=== PATIENT | female | born 1970 | race African-American/Black ===

== ENCOUNTER 2018-07-11 02:58 | Emergency (ER) | payer OTHER ==
--- NOTE | 2018-07-11 03:57 | PDOC ---
History of Present Illness - General Stated Complaint: NAUSEOUS Time Seen by Provider: 07/11/18 03:56 History Source: Patient Exam Limitations: No Limitations Past History - Past Medical History Allergies/Adverse Reactions: Allergies Allergy/AdvReac Type Severity Reaction Status Date / Time acetaminophen [From Percocet] AdvReac Mild Vomiting Verified 08/11/17 01:49 oxycodone HCl [From Percocet] AdvReac Mild Vomiting Verified 08/11/17 01:49 Home Medications: Ambulatory Orders Lisinopril [Prinivil] 20 mg PO DAILY 06/07/16 Venlafaxine HCl [Effexor -] 50 mg PO DAILY 06/07/16 Albuterol Sulfate Inhaler - [Ventolin HFA Inhaler -] 2 inh IH Q6H #1 inh Ibuprofen 800 mg PO TID #30 tablet 06/08/16 Sulfamethoxazole/Trimethoprim [Bactrim *Ds*] 1 tab PO BID #20 tablet 06/08/16 Albuterol Sulfate Inhaler - [Ventolin HFA Inhaler -] 1 - 2 inh PO Q4H PRN #1 inhaler 08/11/17 Anemia: No Asthma: No Cancer: No Cardiac Disorders: No CVA: No COPD: No HTN: Yes Psychiatric Problems: Yes (depression/anxiety) - Surgical History Abdominal Surgery: No Appendectomy: No Cardiac Surgery: No Cholecystectomy: Yes Gastric Stapling: No GI Surgery: No Lung Surgery: No Neurologic Surgery: No - Immunization History Immunization Up to Date: No - Suicide/Smoking/Psychosocial Hx Smoking History: Current every day smoker Have you smoked in the past 12 months: Yes Number of Cigarettes Smoked Daily: 7 'Breaking Loose' booklet given: 06/07/16 Hx Alcohol Use: No Drug/Substance Use Hx: No Substance Use Type: Alcohol
--- NOTE | 2018-07-11 04:09 | PDOC ---
Medical Decision Making - Medical Decision Making 07/11/18 04:09 Pt seen by Midlevel Provider under my direct supervision Pt interviewed and examined Ancillary studies reviewed I agree with plan as outlined by Midlevel Provider *DC/Admit/Observation/Transfer Diagnosis at time of Disposition: Cough, Nausea alone, Abdominal gas pain - Discharge Dispostion Condition at time of disposition: Fair - Prescriptions Prescriptions: Mag Hydrox/Al Hydrox/Simeth [Mylanta Suspension -] 30 ml PO Q6H PRN #1 bottle PRN Reason: Gas - Referrals - Patient Instructions Printed Discharge Instructions: DI for Nausea -- Adult Additional Instructions: drinking plenty of fluids follow up with your doctor as soon as possible. - Post Discharge Activity Forms/Work/School Notes: Back to Work
[2018-07-11] MEDS ORDERED: MAG HYDROX/AL HYDROX/SIMETH 30 ML UNIT-DOSE CUP PO ONE (04:13)
[2018-07-11] MEDS ORDERED: ONDANSETRON 4 MG TABLET PO ONE (04:13)
[2018-07-11 04:20] VITALS: BP 152/76; PULSE 90; TEMP 98.7; BMI 35.6
--- NOTE | 2018-07-11 04:31 | PDOC ---
History of Present Illness - General Chief Complaint: Nausea Stated Complaint: NAUSEOUS Time Seen by Provider: 07/11/18 03:56 History Source: Patient - History of Present Illness Initial Comments: 07/11/18 05:29 48 year old female c/o passing gas frequently not stopped passing gas today. reports feeling that pass in going up not down. + nausea, denies vomiting had normal BM yesterday. denies fever/ chills. patient also reports that she has been coughing and was diagnosed with a URI by . cough has not improved. current smoker. PMHX: htn, hypercholesteremia, depression PSHX: Cholecystectomy 07/11/18 06:14 Past History - Past Medical History Allergies/Adverse Reactions: Allergies Allergy/AdvReac Type Severity Reaction Status Date / Time acetaminophen [From Percocet] AdvReac Mild Vomiting Verified 07/11/18 04:21 oxycodone HCl [From Percocet] AdvReac Mild Vomiting Verified 07/11/18 04:21 Home Medications: Ambulatory Orders Lisinopril [Prinivil] 20 mg PO DAILY 06/07/16 Venlafaxine HCl [Effexor -] 50 mg PO DAILY 06/07/16 Albuterol Sulfate Inhaler - [Ventolin HFA Inhaler -] 1 - 2 inh PO Q4H PRN #1 inhaler 08/11/17 Atorvastatin Ca [Lipitor] 40 mg PO DAILY 07/11/18 Mag Hydrox/Al Hydrox/Simeth [Mylanta Suspension -] 30 ml PO Q6H PRN #1 bottle Anemia: No Asthma: No Cancer: No Cardiac Disorders: No CVA: No COPD: No HTN: Yes Psychiatric Problems: Yes (depression/anxiety) - Surgical History Abdominal Surgery: No Appendectomy: No Cardiac Surgery: No Cholecystectomy: Yes Gastric Stapling: No GI Surgery: No Lung Surgery: No Neurologic Surgery: No - Immunization History Immunization Up to Date: No - Suicide/Smoking/Psychosocial Hx Smoking History: Current every day smoker Have you smoked in the past 12 months: Yes Number of Cigarettes Smoked Daily: 7 'Breaking Loose' booklet given: 06/07/16 Hx Alcohol Use: No Drug/Substance Use Hx: No Substance Use Type: Alcohol *Physical Exam - Vital Signs 07/11/18 05:42 Last Vital Signs Temp Pulse Resp BP Pulse Ox 98.7 F 90 18 152/76 97 07/11/18 04:06 07/11/18 04:06 07/11/18 04:06 07/11/18 04:06 07/11/18 04:06 - Physical Exam General Appearance: Yes: Appropriately Dressed Respiratory/Chest: positive: Lungs Clear, Normal Breath Sounds Gastrointestinal/Abdominal: positive: Normal Bowel Sounds, Soft. negative: Tender, Flat, Organomegaly, Pulsatile Mass, Increased Bowel Sounds, Decreased BS , Protuberent, Distended, Guarding, Rebound, Tenderness, Hernia, Mass, Hepatomegaly, Spleenomegaly, Other Musculoskeletal: positive: Normal Inspection Extremity: positive: Normal Capillary Refill, Normal Inspection, Normal Range of Motion Integumentary: positive: Normal Color, Dry, Warm Neurologic: positive: Fully Oriented, Alert Progress Note - Progress Note Progress Note: A: Gas/ nausea; cough P: chest xray: negative UA abd xray Medical Decision Making - Medical Decision Making 07/11/18 06:36 patient reports feeling better. 07/11/18 06:48 Abdxray: Minimal air and feces in nondilated colon. Minimal air in nondilated small bowel. No bowel obstruction. Cholecystectomy clips. patient is feeling better will dc/ home *DC/Admit/Observation/Transfer Diagnosis at time of Disposition: Cough, Nausea alone, Abdominal gas pain - Discharge Dispostion Condition at time of disposition: Fair - Prescriptions Prescriptions: Mag Hydrox/Al Hydrox/Simeth [Mylanta Suspension -] 30 ml PO Q6H PRN #1 bottle PRN Reason: Gas - Referrals - Patient Instructions Printed Discharge Instructions: DI for Nausea -- Adult Additional Instructions: drinking plenty of fluids follow up with your doctor as soon as possible. - Post Discharge Activity Forms/Work/School Notes: Back to Work
[2018-07-11] MEDS ORDERED: MAG HYDROX/AL HYDROX/SIMETH 30 ML UNIT-DOSE CUP ONE (04:32)
[2018-07-11] MEDS ORDERED: ONDANSETRON 8 MG TABLET (FP) PO ONE (04:32)
[2018-07-11 06:02] LABS: URINE APPEARANCE CLEAR; URINE BILIRUBIN NEGATIVE (<2.0 mg/dL); URINE COLOR LTYELLOW; URINE GLUCOSE (UA) NEGATIVE (NEGATIVE); URINE KETONE NEGATIVE (NEGATIVE); URINE LEUK ESTERASE NEGATIVE (NEGATIVE); URINE NITRITE NEGATIVE (NEGATIVE); URINE PROTEIN NEGATIVE (NEGATIVE); URINE UROBILINOGEN NEGATIVE mg/dL (0.2-1.0)
[2018-07-11 06:31] LABS: EPI CELLS RARE /HPF (FEW); URINE MUCUS RARE
== END 2018-07-11 07:03 | disposition home or self-care (01) ==
LOC: JER 02:58
DX: R05 Cough (principal); R11.0 Nausea; R14.1 Gas pain; F17.210 Nicotine dependence, cigarettes, uncomplicated; F41.8 Other specified anxiety disorders
CPT/HCPCS: 71046-TC-FY; 74019-TC-FY; 81003; 81015; 99282-25

== ENCOUNTER 2019-08-09 21:42 | Emergency (ER) | payer OTHER ==
--- NOTE | 2019-08-09 21:49 | PDOC ---
Rapid Medical Evaluation Chief Complaint: Chest Pain Time Seen by Provider: 08/09/19 21:43 Medical Evaluation: Allergies Allergy/AdvReac Type Severity Reaction Status Date / Time acetaminophen [From Percocet] AdvReac Mild Vomiting Verified 07/11/18 04:21 oxycodone HCl [From Percocet] AdvReac Mild Vomiting Verified 07/11/18 04:21 08/09/19 21:47 49 year old female c/o left sided chest pain x 2 days worse with bending over. patient is not worse with movement. PMHX; bronchitis/ asthma, HTN, hypercholestremia PE: patient alert ox3 A: cardiac labs cbc cmp ekg 08/09/19 21:51 Discharge Disposition - Diagnosis Chest pain Qualifiers: Chest pain type: unspecified Qualified Code(s): R07.9 - Chest pain, unspecified - Referrals - Patient Instructions - Post Discharge Activity
[2019-08-09 21:51] VITALS: TEMP 98.6; BMI 36.9
--- NOTE | 2019-08-09 22:16 | PDOC ---
History of Present Illness - General Chief Complaint: Chest Pain Stated Complaint: CHEST PAIN Time Seen by Provider: 08/09/19 21:43 - History of Present Illness Initial Comments: The pt is a 49F w/ a history of HTN, HLD, depression, anxiety, and asthma who presents for evaluation of chest pain for 2 days. The pain is left sided, sharp , constant, non-radiating, worse with leaning forward and touch, and not alleviated by anything she can identify. She reports possible associated SOB but is unsure bc she is frequently SOB. She has not tried taking anything for the pain. She denies fevers/chills, HEWITT, vision changes, N/V/C/D, dysuria, hematuria, abdominal pain, or rash. Reports CAD/cardiac events in 2 siblings Father had pacemaker No personal history of OCP, quit cigarettes 2 months ago, no history of blood clot/cancer 08/09/19 22:40 Past History - Past Medical History Allergies/Adverse Reactions: Allergies Allergy/AdvReac Type Severity Reaction Status Date / Time acetaminophen [From Percocet] AdvReac Mild Vomiting Verified 08/09/19 21:51 oxycodone HCl [From Percocet] AdvReac Mild Vomiting Verified 08/09/19 21:51 Home Medications: Ambulatory Orders Lisinopril [Prinivil] 20 mg PO DAILY 06/07/16 Venlafaxine HCl [Effexor -] 50 mg PO DAILY 06/07/16 Albuterol Sulfate Inhaler - [Ventolin HFA Inhaler -] 1 - 2 inh PO Q4H PRN #1 inhaler 08/11/17 Atorvastatin Ca [Lipitor] 40 mg PO DAILY 07/11/18 Mag Hydrox/Al Hydrox/Simeth [Mylanta Suspension -] 30 ml PO Q6H PRN #1 bottle Anemia: No Asthma: No Cancer: No Cardiac Disorders: No CVA: No COPD: No HTN: Yes Hypercholesterolemia: Yes Psychiatric Problems: Yes (depression/anxiety) - Surgical History Abdominal Surgery: No Appendectomy: No Cardiac Surgery: No Cholecystectomy: Yes Gastric Stapling: No GI Surgery: No Lung Surgery: No Neurologic Surgery: No - Immunization History Immunization Up to Date: No - Psycho Social/Smoking Cessation Hx Smoking History: Current every day smoker Have you smoked in the past 12 months: Yes Number of Cigarettes Smoked Daily: 7 Information on smoking cessation initiated: No 'Breaking Loose' booklet given: 06/07/16 Hx Alcohol Use: No Drug/Substance Use Hx: No Substance Use Type: Alcohol Review of Systems - Review of Systems Able to Perform ROS?: Yes Comments:: GENERAL/CONSTITUTIONAL: No fever or chills. No weakness HEAD, EYES, EARS, NOSE AND THROAT: No change in vision. No change in hearing. No sore throat CARDIOVASCULAR: +CP RESPIRATORY: Denies cough, hemoptysis GASTROINTESTINAL: No nausea, vomiting, diarrhea or constipation GENITOURINARY: No dysuria, frequency, or change in urination MUSCULOSKELETAL: No joint or muscle swelling or pain. No neck or back pain SKIN: No rash NEUROLOGIC: No headache, vertigo, loss of consciousness, +chronic BLE tingling ENDOCRINE: No increased thirst. No abnormal weight change HEMATOLOGIC/LYMPHATIC: No anemia, easy bleeding, or history of blood clots ALLERGIC/IMMUNOLOGIC: No hives or skin allergy 08/09/19 22:15 Is the patient limited Frisian proficient: No *Physical Exam - Vital Signs Last Vital Signs Temp Pulse Resp BP Pulse Ox 98.6 F 91 H 18 174/97 H 98 08/09/19 21:48 08/09/19 21:48 08/09/19 21:48 08/09/19 21:48 08/09/19 21:48 - Physical Exam Comments: GENERAL: Awake, alert, and oriented to person/place/time, in no acute distress HEAD: No signs of trauma, normocephalic, atraumatic EYES: PERRLA, EOMI, sclera anicteric, conjunctiva clear ENT: Hearing grossly normal, nares patent, oropharynx clear without exudates. Moist mucosa LUNGS: No distress, speaks in full sentences, clear to auscultation bilaterally HEART: Regular rate and rhythm, normal S1 and S2, no murmurs appreciated, peripheral pulses normal and equal bilaterally ABDOMEN: Soft, protuberant, nontender, normoactive bowel sounds. No guarding, no rebound EXTREMITIES: Normal inspection, Normal range of motion, no edema. No clubbing or cyanosis NEUROLOGICAL: Cranial nerves II through XII grossly intact. Normal speech, normal gait, no focal sensorimotor deficits SKIN: Warm, Dry 08/09/19 22:15 Heart Score/ECG Review - History History: Slightly suspicious - Electrocardiogram EKG: Normal - Age Age: 45-65 - Risk Factors Risk Factors Heart Score: Yes Hx Hypercholesterolemia, Yes Hx Hypertension, Yes Positive family hx of cardiac disease Based on the list above the patient has:: >/=3 risk factors or Hx atherosclerotic disease - Troponin Troponin: </= normal limit - Score Heart Score - Total: 3 ED Treatment Course - LABORATORY CBC & Chemistry Diagram: 08/09/19 22:30 08/09/19 22:30 Medical Decision Making - Medical Decision Making The pt is a 49F w/ a history of HTN, HLD, depression, anxiety, and asthma who presents for evaluation of chest pain for 2 days. ED Course Labs sent ECG CXR 08/09/19 22:44 ECG w/ sinus rhythm; HR 97; QTc 472; no axis deviation, no TEJAS CXR w/o PNA, PNX No anemia No leukocytosis Trop neg x2 Pt reports symptoms resolved Plan for D/C w/ PCP/Cards f/u Discharge instructions and return precautions given Patient in agreement and verbalized understanding Dispo: Home 08/10/19 00:49 Discharge - Discharge Information Problems reviewed: Yes Clinical Impression/Diagnosis: Chest pain Qualifiers: Chest pain type: unspecified Qualified Code(s): R07.9 - Chest pain, unspecified Condition: Stable Disposition: HOME - Admission No - Follow up/Referral Referrals: Rodolfo Franklin MD [Staff Physician] - [facility] [place] Group] - Patient Discharge Instructions Patient Printed Discharge Instructions: DI for Chest Pain Additional Instructions: You were seen in the Emergency Department for evaluation of chest pain. Your labs and imaging were unremarkable. Review the handout provided at discharge. Follow up with your primary care provider within a week. Return to the Emergency Department if you develop fevers, chest pain, trouble breathing, worsening pain, change in sensation, worsening symptoms, or any new/ concerning symptoms. - Post Discharge Activity Work/Back to School Note: Back to Work
[2019-08-09 22:39] LABS: BASO % 0.2 % (0-2.0); EOS % 0.8 % (0-4.5); HEMATOCRIT 37.6 % (32.4-45.2); HEMOGLOBIN 11.9 GM/dL (10.7-15.3); LYMPH % 39.6 % (8-40); MCH 23.7 pg (25.7-33.7); MCHC 31.7 g/dl (32.0-36.0); MEAN PLT VOLUME 7.5 fl (7.5-11.1); MONO % 6.1 % (3.8-10.2); NEUT % 53.3 % (42.8-82.8); PLATELET COUNT 369 K/MM3 (134-434); RBC 5.01 M/mm3 (3.60-5.2); WHITE BLOOD COUNT 8.8 K/mm3 (4.0-10.0)
[2019-08-09 22:51] LABS: INR 1.05 (0.83-1.09); PROTHROMBIN TIME (PATIENT) 12.4 SEC (9.7-13.0)
[2019-08-09 22:54] LABS: ACTIVATED PTT 33.4 SECONDS (25.2-36.5)
[2019-08-09 23:02] LABS: ALBUMIN 3.7 g/dl (3.4-5.0); BILIRUBIN,TOTAL 0.3 mg/dL (0.2-1); BLOOD UREA NITROGEN 11.4 mg/dL (7-18); CALCIUM 8.7 mg/dL (8.5-10.1); CREATININE 0.9 mg/dL (0.55-1.3); POTASSIUM 3.9 mmol/L (3.5-5.1); TOT PROT 7.1 g/dl (6.4-8.2)
[2019-08-09 23:48] VITALS: BP 139/68; PULSE 83
--- NOTE | 2019-08-10 00:46 | PDOC ---
Attending Attestation - Resident Resident Name: Batool Lopezan - ED Attending Attestation I have performed the following: I have examined & evaluated the patient, The case was reviewed & discussed with the resident, I agree w/resident's findings & plan, Exceptions are as noted - HPI HPI: 08/10/19 00:32 Ms. Palomo is a 49-year-old female presenting to the emergency department with a complaint of chest pain She has a history of HTN, HLD, depression, anxiety, and asthma Patient began noting chest pain yesterday, located in the left side of the chest Pain is described as an ache/sharp, nonradiating, pain is present only when bending forward or palpating the area. Pain is not worse with exertion or deep breath. No prior episodes like this No recent travel No recent upper respiratory infection, cough No chest wall trauma, no heavy lifting, no pushing No rash No associated nausea, vomiting, diaphoresis Patient has not taken any pain medication Currently, patient has no chest pain at all. Reports CAD/cardiac events in 2 siblings Father had pacemaker No personal history of OCP, quit cigarettes 2 months ago, no history of blood clot/cancer - Physicial Exam PE: 08/10/19 00:36 GENERAL: The patient is in no acute distress, speaking with examiner. ENT: Ears normal, nares patent, oropharynx clear without exudates. Moist mucous membranes. NECK: Normal range of motion, supple LUNGS: Breath sounds equal, clear to auscultation bilaterally. No wheezes, and no crackles. HEART:Regular rate and rhythm, normal S1 and S2 without murmur, rub or gallop. ABDOMEN: Soft, nontender, normoactive bowel sounds. EXTREMITIES: Normal range of motion, no edema. MUSCULOSKELETAL: No chest wall tenderness NEUROLOGICAL: Cranial nerves II through XII grossly intact. Normal speech. No focal neurological deficits. SKIN: No rash noted - Medical Decision Making 08/10/19 00:46 49-year-old female presented to emergency department with a complaint of chest pain Nonexertional Worse with bending forward Chest pain has now resolved completely EKG: Normal sinus rhythm rate of 97 bpm, axid nml, intervals nml, no st elevation , t waves upright, no pathological q waves 08/10/19 00:50 Laboratory Tests 08/09/19 08/09/19 08/10/19 22:01 22:30 00:00 Hgb 11.9 Hct 37.6 Creatine Kinase 308 H Creatine Kinase Index 0.8 CK-MB (CK-2) 2.6 Troponin I < 0.02 < 0.02 Will discharge to home Will ask pt to follow up with PMD Return to the ER for any other concerns or complaints
--- NOTE | 2019-08-11 20:13 | EKG ---
Test Reason : Blood Pressure : / mmHG Vent. Rate : 097 BPM Atrial Rate : 097 BPM P-R Int : 108 ms QRS Dur : 082 ms QT Int : 372 ms P-R-T Axes : 075 055 081 degrees QTc Int : 472 ms SINUS RHYTHM WITH SHORT TN OTHERWISE NORMAL ECG WHEN COMPARED WITH ECG OF 11-AUG-2017 03:14, TN INTERVAL HAS DECREASED Confirmed by SHERRON RIVERA MD ([id number]) on 08/11/2019 8:12:35 PM Referred By: Confirmed By:SHERRON RIVERA MD
== END 2019-08-10 01:01 | disposition home or self-care (01) ==
LOC: JER 21:42
DX: R07.9 Chest pain, unspecified (principal); I10 Essential (primary) hypertension; E78.5 Hyperlipidemia, unspecified; J45.909 Unspecified asthma, uncomplicated; F41.9 Anxiety disorder, unspecified; F32.9 Major depressive disorder, single episode, unspecified; F17.210 Nicotine dependence, cigarettes, uncomplicated; Z88.5 Allergy status to narcotic agent; Z88.6 Allergy status to analgesic agent
CPT/HCPCS: 36415; 71046-TC-FY; 80053; 82550; 82553; 83735; 84484; 85025; 85610; 85730; 93005; 93010; 99284-25